=== PATIENT | male | born 1985 | race Caucasian/White ===

== ENCOUNTER 2019-02-22 18:19 | Emergency (ER) | payer MEDICAID ==
[~2019-02-22] VITALS: Ht 187.9 cm; Wt 90.7 kg
[2019-02-22] MEDS ORDERED: DOXYCYCLINE100 M3 PO (20:37)
[2019-02-22] MEDS ORDERED: IBUPROFEN600 MG PO (20:37)
== END 2019-02-22 21:59 | disposition home or self-care (01) ==
LOC: ED 18:19
DX: L02.511 Cutaneous abscess of right hand (principal); Z88.0 Allergy status to penicillin